=== PATIENT | female | born 2000 | race Caucasian/White ===

== ENCOUNTER 2021-02-27 09:52 | Emergency (ER) | payer OTHER ==
[~2021-02-27] VITALS: Ht 157.5 cm; Wt 71.8 kg
[2021-02-27] MEDS ORDERED: CYCLOBENZAPRINE HCL 10 MG TABLET PO ONE (11:45)
[2021-02-27] MEDS ORDERED: KETOROLAC TROMETHAMINE 60 MG/2 ML VIAL IM ONE (11:45)
[2021-02-27 12:52] VITALS: BP 137/80
== END 2021-02-27 13:15 | disposition home or self-care (01) ==
LOC: EMS 09:52
DX: M62.838 Other muscle spasm (principal); M54.2 Cervicalgia; M25.551 Pain in right hip
CPT/HCPCS: 96372; 99283; J1885

== ENCOUNTER 2025-02-10 22:01 | Emergency (ER) | payer OTHER ==
[~2025-02-10] VITALS: Ht 157.5 cm; Wt 82.3 kg
[~2025-02-10 22:01] MED LIST: BENZ-227 PO; CEPH-558 PO; FOLI-130 PO; METH2.5T6 PO
[2025-02-10 22:12] VITALS: BP 166/188; PULSE 118; RESP 19; TEMP 98.1; O2SAT 98
[2025-02-11] MEDS: KETOROLAC TROMETHAMINE 30 MG/ML VIAL IM ONE (03:09)
[2025-02-11] MEDS: LIDOCAINE 5% TRANSDERMAL PATCH TD ONE (03:09)
[2025-02-11] MEDS: ACETAMINOPHEN 500 MG TABLET PO ONE (03:09)
[2025-02-11] MEDS ORDERED: METH-812 PO (03:56)
== END 2025-02-11 04:08 | disposition home or self-care (01) ==
LOC: EMS 22:02
DX: S39.012A Strain of muscle, fascia and tendon of lower back, initial encounter (principal); M19.90 Unspecified osteoarthritis, unspecified site; M06.9 Rheumatoid arthritis, unspecified; Z79.899 Other long term (current) drug therapy; Z91.018 Allergy to other foods; Z91.012 Allergy to eggs; X58.XXXA Exposure to other specified factors, initial encounter; Y93.89 Activity, other specified; Y92.89 Other specified places as the place of occurrence of the external cause; Y99.8 Other external cause status
CPT/HCPCS: 99284; 96372; J1885